=== PATIENT | female | born 1975 | race Caucasian/White ===

== ENCOUNTER 2023-11-02 03:16 | Emergency (ER) | payer MEDICARE ==
[~2023-11-02] VITALS: Ht 162.6 cm; Wt 99.8 kg
[2023-11-02] MEDS ORDERED: LISI20 PO (03:33)
[2023-11-02] MEDS ORDERED: ATOR20 (03:33)
[2023-11-02] MEDS ORDERED: OMEP20ER PO (03:33)
[2023-11-02] MEDS ORDERED: PEDIARIX (03:34)
[2023-11-02] MEDS ORDERED: METO25ER (03:34)
[2023-11-02] MEDS ORDERED: PREVNAR (03:34)
[2023-11-02] MEDS ORDERED: FLUT1DIS2 (03:34)
[2023-11-02] MEDS ORDERED: CYCL10 (03:35)
[2023-11-02] MEDS ORDERED: MAGNESIUM OXID500 MG (03:43)
[2023-11-02] MEDS ORDERED: FAMO40 (03:44)
[2023-11-02] MEDS ORDERED: VITAMIN D362.5 MC1 (03:44)
[2023-11-02] MEDS ORDERED: ALBU90OI (03:44)
[2023-11-02] MEDS ORDERED: JARDIANCE25 MG (03:44)
[2023-11-02] MEDS ORDERED: HUMIRA(CF)40 MG/0.1 (03:44)
[2023-11-02] MEDS ORDERED: HYDCHL25 (03:45)
[2023-11-02] MEDS ORDERED: ALPR.5 (03:45)
[2023-11-02] MEDS ORDERED: FOLI1 (03:45)
[2023-11-02] MEDS ORDERED: ONDA4ODT (03:46)
[2023-11-02] MEDS ORDERED: Glucagon Emergen1 MG (03:46)
[2023-11-02] MEDS ORDERED: BASAGLAR K100 UNIT/3 (03:47)
[2023-11-02] MEDS ORDERED: VENL75ER (03:47)
[2023-11-02] MEDS ORDERED: GLUCAGEN1 MG/1 M1 (03:47)
[2023-11-02] MEDS ORDERED: LAMO100 (03:48)
[2023-11-02] MEDS ORDERED: METTREX2.5 (03:48)
[2023-11-02] MEDS ORDERED: NOVOLIN N100 UNIT/2 (03:48)
[2023-11-02 03:49] LABS: Bun/Creatinine Ratio 14.4 (12.0-20.0); Calcium, Blood 9.2 mg/dL (8.5-10.1); Creatinine, Blood 1.11 mg/dL (0.40-1.00)
[2023-11-02] MEDS ORDERED: LEVSOD100 (03:49)
[2023-11-02] MEDS ORDERED: GABA600 (03:49)
[2023-11-02] MEDS ORDERED: GABA300 (03:49)
[2023-11-02] MEDS ORDERED: METF500 (03:49)
[2023-11-02] MEDS ORDERED: METHOTREXATE2.5 M9 (03:53)
[2023-11-02 08:08] VITALS: BP 147/77
== END 2023-11-02 08:24 | disposition home or self-care (01) ==
LOC: ER 03:16
PROVIDERS: Student in an Organized Health Care Education/Training Program
DX: T38.3X1A Poisoning by insulin and oral hypoglycemic [antidiabetic] drugs, accidental (unintentional), initial encounter (principal); E11.649 Type 2 diabetes mellitus with hypoglycemia without coma; Z79.899 Other long term (current) drug therapy; Z79.4 Long term (current) use of insulin; Z79.84 Long term (current) use of oral hypoglycemic drugs
CPT/HCPCS: 80048; 82947; 96374; 99284-25; A9270; J7030; J7799